=== PATIENT | female | born 1970 | race Caucasian/White ===

== ENCOUNTER 2022-11-01 09:29 | Emergency (ER) | payer BC, SELFPAY ==
--- NOTE | ~2022-11-01 | CT_ITS ---
Clinical Indication: Chest pain CT Scan of the Chest with Contrast: Technique: Contiguous sections were acquired throughout the chest after intravenous administration of 100 cc of Omnipaque 350. Dose reduction technique was used on this scan by utilizing automated expos ure control and iterative reconstruction technique. The dose-length product (DLP) was 153.03 mGy-cm. Findings: There is no evidence of any significant mediastinal, hilar or axillary lymphadenopathy. There is no f illing defect in the pulmonary arterial tree to suggest pulmonary embolus. There is no evidence of ao rtic dissection or aneurysm. There is no evidence of pleural or pericardial effusion. The lungs are clear. No pulmonary nodules or infiltrates are noted. Images through the upper abdomen reveal no abnormalities. Impression: No evidence of pulmonary embolus, aortic dissection, or aortic aneurysm. Clear lungs. Reviewed, dictated and finalized at [facility]. [facility] Impression: No evidence of pulmonary embolus, aortic dissection, or aortic aneurysm. Clear lungs.
--- NOTE | ~2022-11-01 | XR_ITS ---
Clinical Indication: Chest pain PA and lateral views of the chest: Comparison: None Findings: The lungs are clear, without evidence of focal consolidation or pleural effusion. Cardiome diastinal silhouette is within normal limits. Bones and soft tissues are unremarkable. Impression: Normal chest. Reviewed, dictated and finalized at location . [facility] Impression: Normal chest.
--- NOTE | 2022-11-01 09:31 | ECG_ITS ---
Measurements Intervals [place] Rate: 101 P: 80 ID: 150 QRS: 9 QRSD: 74 T: 66 QT: 325 QTc: 422 Interpretive Statements SINUS TACHYCARDIA NONSPECIFIC ST & T-WAVE ABNORMALITY- INF/HIGH LAT LEADS BASELINE ARTIFACT- I, II, III BORDERLINE ECG NO PREVIOUS ECG AVAILABLE FOR COMPARISON Electronically Signed On 11-01-2022 10:03:48 EMERGENCY RESPONSE OFFICER by Uriel Zamora D.O.
[2022-11-01 09:45] VITALS: BP 110/79; PULSE 111; RESP 16; TEMP 37.1; O2SAT 100
[2022-11-01 09:47] VITALS: BP 110/79; PULSE 105; RESP 16; TEMP 37.1; O2SAT 100
[2022-11-01 09:52] LABS: Basophils Percent Auto 0.4 % (0.2-1.2); Eosinophils Percent Auto 0.3 % (0-4.4); Hematocrit 41.5 % (37.0-47.0); Immature Granulocyte Absolute 0.03 K/mm3 (0.00-0.031); Immature Granulocyte Percent A 0.3 % (0-0.5); Lymphocytes Absolute Auto 1.49 K/mm3 (0.9-3.2); Lymphocytes Percent Auto 16.2 % (18.3-44.2); Mean Corpuscular HGB Conc 33.7 g/dl (32-36); Mean Corpuscular Hemoglobin 31.7 pg (26-34); Mean Corpuscular Volume 93.9 fl (80-100); Mean Platelet Volume 8.9 fl (7.4-10.4); Monocytes Absolute Auto 0.5 K/mm3 (0.1-0.6); Monocytes Percent Auto 5.8 % (2.6-8.5); Neutrophils Absolute Auto 7.1 K/mm3 (1.3-6.7); Platelet Count Result 367 k/mm3 (150-375); Red Blood Count 4.42 M/mm3 (4.2-5.4); Red Cell Distribution Width 11.6 % (11.5-14.5); White Blood Count 9.2 K/mm3 (4.5-10.0)
[2022-11-01 10:03] LABS: Prothrombin Time 12.8 Seconds (11.1-14.7)
[2022-11-01 10:04] LABS: Partial Thromboplastin Time 28.5 SECONDS (22.3-36.8)
[2022-11-01 10:07] LABS: Chloride 100 mmol/L (98-107)
[2022-11-01 10:17] LABS: Alanine Aminotransferase 17 U/L (6-35); Albumin Level 4.8 g/dL (3.5-5.1); Alkaline Phosphatase 79 U/L (38-126); Anion Gap 8 mmol/L (8-16); Aspartate Amino Transferase 23 U/L (14-36); Bilirubin,Total 0.9 mg/dL (0.2-1.3); Blood Urea Nitrogen 10 mg/dL (7-17); Calcium 9.3 mg/dL (8.4-10.2); Carbon Dioxide 28 mmol/L (22-30); Estimated CRCL calculation 84 ml/min; Estimated Glomerular Filt Rate > 60; Glucose 103 mg/dL (65-110); Lipase 52 U/L (23-300); Potassium 4.2 mmol/L (3.4-5.0); Sodium 136 mmol/L (137-145); Troponin I < 0.012 ng/mL (0.000-0.034)
[2022-11-01 11:20] VITALS: O2SAT 100
[2022-11-01 11:22] VITALS: BP 118/100; PULSE 111; RESP 14; O2SAT 100
--- NOTE | 2022-11-01 11:31 | ED.CHESTPAIN ---
HPI - Chest Pain General Chief Complaint: Chest Pain Stated Complaint: CHEST PAIN WITH INSPIRATION Time Seen by Provider: 11/01/22 11:03 History of Present Illness HPI narrative: 32-year-old healthy female here for evaluation of left shoulder/chest pain over the past 3 days. Patient states the pain is worse with deep breaths. Denies worsening pain with movement of the shoulder. She attributes this to a muscle sprain initially because she played tennis prior to onset of pain. Has not taken any medicine for her pain yet. Spoke to PCP who recommended ED eval. No fevers, chills, nausea, vomiting, leg swelling or pain. Related Data Home Medications Medication Instructions Recorded Confirmed albuterol sulfate 90 mcg/actuation 1 inh inhalation Q4-6H PRN 08/21/21 08/21/21 breath activated powder inhaler cholecalciferol (vitamin D3) 125 125 mcg PO DAILY 08/21/21 08/21/21 mcg (5,000 unit) capsule evening primrose oil 500 mg capsule 500 mg PO TID 08/21/21 08/21/21 lactobacillus combination no.4 3 3,000 mmu cells PO DAILY 08/21/21 08/21/21 billion cell capsule (Probiotic) spironolactone 100 mg tablet 100 mg PO DAILY 08/21/21 08/21/21 vitamin E 200 unit capsule 200 unit PO DAILY 08/21/21 08/21/21 levonorgestrel 21 mcg/24 hours (8 1 insert intrauterine ONCE 08/30/21 yrs) 52 mg intrauterine device (Mirena) Allergies Allergy/AdvReac Type Severity Reaction Status Date / Time No Known Allergies Allergy Verified 08/21/21 09:21 Review of Systems Review of Systems: Gen.: Denies fevers or chills Eyes: Denies eye pain or visual change ENT: Denies congestion Respiratory: Reports shortness of breath CV: Reports left-sided chest pain GI: Denies abdominal pain nausea, emesis or diarrhea denies burning, urgency, frequency or hematuria Musculoskeletal: Denies back pain or muscle pain Neuro: Denies numbness, tingling, weakness or focal weakness Skin: Denies rash Except as documented, all other systems reviewed and negative PMFSH Past Medical History Medical History Asthma Vaginal delivery x2 Surgical History Surgical History No pertinent past surgical history Family History Family History Father Skin cancer Sibling Alcoholism Anxiety and depression Grandparent Diabetes mellitus Grandparent Alcoholism Lung cancer Heart disease Social History Social History Smoking status: Never smoker Alcohol intake: current Drinks per week: 7 Alcohol use details: 1 nightly Substance use: never Agree to blood products: Yes Exam Narrative: APPEARANCE: Well appearing, no pain in distress, well-nourished. Head: Normocephalic and atraumatic. EYES: PERRLA/EOMI, conjunctivae clear NOSE: No nasal drainage EARS: External ear normal in appearance THROAT: Oropharynx is clear. Mucous membranes are moist. NECK: Supple. No adenopathy, no masses. RESPIRATORY: Airway patent, respirations nonlabored. Clear to auscultation bilaterally, no rales, rhonchi, wheezing. CARDIOVASCULAR: Tachycardic. Regular rhythm without murmurs, rubs, or gallops. ABDOMINAL: Normoactive bowel sounds. Soft, nontender, nondistended. No rebound tenderness or guarding. MUSCULOSKELETAL: Extremities are warm and well-perfused. Moves all extremities well. No edema. NEURO: Normal speech. No focal neurologic deficits. SKIN: Skin is warm and dry. No rashes. PSYCHIATRIC: Normal affect/mood.. Course Vital Signs Vital signs: Vital Signs Temperature 98.7 F 11/01/22 09:45 Pulse Rate 111 H 11/01/22 09:45 Respiratory Rate 16 11/01/22 09:45 Blood Pressure 110/79 11/01/22 09:45 Pulse Oximetry 100 11/01/22 09:45 Temperature 98.7 F 11/01/22 09:47 Pulse Rate 89 11/01/22 13:22
[2022-11-01 11:41] LABS: D Dimer 0.74 ug/mL (<0.48)
[2022-11-01 12:33] VITALS: BP 106/76; PULSE 103; RESP 20; O2SAT 98
[2022-11-01 13:10] LABS: Troponin I < 0.012 ng/mL (0.000-0.034)
[2022-11-01 13:22] VITALS: BP 100/72; PULSE 89; RESP 14; O2SAT 99
== END 2022-11-01 13:29 | disposition home or self-care (01) ==
PROVIDERS: Emergency Medicine; Emergency Provider Physician Assistant; PCP Emergency Medicine
DX: R09.1 Pleurisy (principal); J45.909 Unspecified asthma, uncomplicated; Z79.51 Long term (current) use of inhaled steroids
CPT/HCPCS: 36415; 71046; 71275; 80053; 83690; 84484; 85025; 85380; 85610; 85730; 93005; 99284; Q9967

== ENCOUNTER → 2023-03-31 07:43 | Outpatient (CLI) | payer BC, SELFPAY ==
--- NOTE | ~2023-03-31 | MR_ITS ---
EXAMINATION: MR brain/brain stem wo/w con DATE: 03/31/2023 08:41 INDICATION: Ringing in the ears and headaches TECHNIQUE: Magnetic resonance imaging (MRI) of the brain and brainstem was performed without and with 10 mL Multihance intravenous contrast. Sequences included sagittal and axial T1-weighted FSE, axial diffusion-weighted FS EPI, axial T2*-weighted GRE, axial T2-weighted FLAIR Propeller, axial T2-weight ed Propeller, small mnkoq-se-exkf coronal FIESTA, small bpuat-fy-bzoz coronal T1-weighted FSE, and sm all fmkjo-op-zswd axial T1-weighted SPGR. Postcontrast sequences included axial T1-weighted FSE, smal l xhqin-an-inwa coronal T1-weighted FSE, and small mvqfh-mm-dhes axial T1-weighted SPGR. Apparent dif fusion coefficient (ADC) maps were created. COMPARISON: None. FINDINGS: There are no areas of restricted diffusion to suggest acute infarction. No intracranial hemorrhage or abnormal intracranial mass lesion. Developmental venous anomaly in the periventricular anterior righ t frontal lobe. There are scattered areas of nonspecific increased T2-weighted signal intensity in th e cerebral white matter, predominantly involving the deep and periventricular white matter. There are no intraparenchymal signal abnormalities seen on the other pulse sequences. Normal seventh/eighth cr anial nerve complexes. No cerebellopontine angles masses. No evidence of mastoid or middle ear flui d. The ventricles are symmetric and normal in size. There are no abnormal extra-axial fluid collectio ns. Flow voids are seen in the cerebral arteries on the T2-weighted sequences consistent with their e xpected patency. Mucous retention cyst in the right maxillary sinus. Visualized orbits and soft tissu es are unremarkable. There are no areas of abnormal enhancement on the post contrast images. IMPRESSION: 1. Right frontal lobe developmental venous anomaly. Otherwise normal brain with no acute intracranial process. Reviewed, dictated and finalized at location [facility].
== END ==
PROVIDERS: PCP Internal Medicine; Visit Provider Otolaryngology
DX: H93.13 Tinnitus, bilateral (principal)
CPT/HCPCS: 70553; A9577

== ENCOUNTER → 2023-10-16 10:46 | Outpatient (CLI) | payer BC, SELFPAY ==
--- NOTE | ~2023-10-16 | CT_ITS ---
EXAMINATION: CT abdomen pelvis w con DATE: 10/16/2023 11:15 INDICATION: Unspecified abdominal pain TECHNIQUE: Computed tomography (CT) of the abdomen and pelvis was performed with 100 CC Omnipaque 350 intravenous contrast. Automated exposure control and iterative reconstruction technique were employe d. Exam dose: 264.96 mGy-cm total exam DLP. COMPARISON: None. FINDINGS: The lung bases are clear. Normal heart size. No pericardial or pleural effusion. The liver, gallbladder, bile ducts, spleen, pancreas, pancreatic duct, and adrenal glands are unremar kable. There are several right renal cysts, measuring up to 7.5 mm. Several left renal cysts measuring up to 7.5 mm are noted as well. No urinary tract calculus or hydroureteronephrosis is detected. 1.8 x 2.4 cm right ovarian cyst. As an IUD within the uterus. There is uterine enlargement, measuring up to 11 cm vertical and 6 cm an teroposterior maximal dimensions. Normal caliber of the abdominal aorta. No intraperitoneal or retroperitoneal or pelvic mass lesion or adenopathy or ascites. Normal caliber of the abdominal aorta. No intraperitoneal or retroperitoneal or pelvic mass lesion or adenopathy or ascites. There is moderate diffuse thickening of the urinary bladder wall. Recommend correlation with urinalys is to exclude cystitis. No evidence of appendicitis. There is a prominent amount of fecal material in the colon. No bowel obs truction, bowel wall thickening, pneumatosis or intraperitoneal free air is detected. Included skeletal structures are unremarkable. IMPRESSION: 1.8 x 2.4 cm right ovarian cyst Several bilateral renal cysts measuring up to 7.5 mm Moderate diffuse thickening of the urinary bladder wall; recommend clinical correlation to exclude cy stitis Reviewed, dictated and finalized at [facility]. Reviewed, dictated and finalized at location L. REL MANUFACTURE INSTRUCTOR IMPRESSION: 1.8 x 2.4 cm right ovarian cyst Several bilateral renal cysts measuring up to 7.5 mm Moderate diffuse thickening of the urinary bladder wall; recommend clinical cor relation to exclude cystitis
== END ==
PROVIDERS: PCP Internal Medicine; Visit Provider Internal Medicine
DX: N83.201 Unspecified ovarian cyst, right side (principal); N28.1 Cyst of kidney, acquired
CPT/HCPCS: 74177; Q9967

== ENCOUNTER 2023-11-13 15:08 | Outpatient (CLI) | payer BC, SELFPAY ==
--- NOTE | ~2023-11-13 | US_ITS ---
EXAMINATION: US pelvic complete w TV DATE: 11/13/2023 15:38 INDICATION: Right ovarian cyst seen on prior CT Comparison:No prior studies for comparison. TECHNIQUE: Multiple transabdominal and endovaginal sonographic images of the pelvis performed. FINDINGS: The uterus measures 11.8 x 6.8 x 6.4 cm. There are multiple uterine masses, consistent with fibroids, largest measuring 3 cm. The endometrial complex measures 8 mm. The right ovary measures 3.2 x 2.4 x 1.9 cm and the left ovary measures 4.1 x 3.1 x 3.1 cm. There ar e small follicles in each ovary. There is a septated left ovarian cyst measuring 4 x 3.1 x 2.2 cm Nor mal doppler signal in both ovaries. There is no free fluid in the pelvis. There are no abnormal masses seen on either side. IMPRESSION: 1. Left ovarian cyst containing internal septations measuring 4 cm. 2: Enlarged fibroid uterus, largest discrete fibroid measuring 3 cm. Reviewed, dictated and finalized at location A.
== END 2023-11-13 15:09 ==
PROVIDERS: PCP Internal Medicine; Visit Provider Nurse Practitioner
DX: N85.2 Hypertrophy of uterus (principal); N83.202 Unspecified ovarian cyst, left side; D25.9 Leiomyoma of uterus, unspecified
CPT/HCPCS: 76830; 76856

== ENCOUNTER 2023-12-30 15:06 | Outpatient (CLI) | payer BC, SELFPAY ==
--- NOTE | ~2023-12-30 | US_ITS ---
EXAMINATION: US pelvic complete DATE: 12/30/2023 15:31 INDICATION: Follow-up left ovarian cyst Comparison:Ultrasound dated 11/13/2023 TECHNIQUE: Multiple transabdominal and endovaginal sonographic images of the pelvis performed. FINDINGS: The uterus measures 10.4 x 6.4 x 6.1 cm. There are uterine fibroids with coarse calcificati ons in the uterus. Largest fibroid measures 2.9 cm. The endometrial complex measures 7 mm. The right ovary is not visualized. Left ovary measures 4.1 x 3.7 x 2.1 cm and contains a 3.6 cm cyst. There is normal Doppler signal in the left ovary. There is no free fluid in the pelvis. There are no abnormal masses seen on either side. IMPRESSION: 1. Left ovarian cyst measuring 3.6 cm. 2: Enlarged fibroid uterus. Reviewed, dictated and finalized at location B.
== END 2023-12-30 15:07 ==
PROVIDERS: PCP Internal Medicine; Visit Provider Obstetrics & Gynecology Gynecology
DX: N83.202 Unspecified ovarian cyst, left side (principal); D25.9 Leiomyoma of uterus, unspecified
CPT/HCPCS: 76856

== ENCOUNTER 2024-01-09 02:04 | Day surgery (SDC) | payer BC, SELFPAY ==
[2023-12-23 13:48] VITALS: BMI 20.5
[2024-01-09] MEDS: LACTATED RINGERS 1,000 ML 150 ML IV CONT (06:21)
[2024-01-09 06:22] VITALS: BP 117/83; PULSE 107; RESP 16; TEMP 36.6; O2SAT 100
--- NOTE | 2024-01-09 07:12 | PM.HPGS ---
History of Present Illness History of Present Illness Consent: Risks, benefits, and alternatives have been discussed and questions answered. Patient agrees to proceed with procedure. Chief complaint: neoplasm screening Narrative: Yoana Penn is a 53 year old female here for first screening colonoscopy Review of Systems Review of Systems: All systems reviewed & are unremarkable except as noted in HPI and below PMFSH Past Medical History Medical History (Updated 01/09/24 @ 07:13 by Lewis Erickson MD) Asthma Colon cancer screening Vaginal delivery x2 Surgical History Surgical History No pertinent past surgical history Family History Family History Father Skin cancer Sibling Alcoholism Anxiety and depression Grandparent Diabetes mellitus Grandparent Alcoholism Lung cancer Heart disease Social History Social History Smoking status: Never smoker Alcohol intake: current Drinks per week: 4 Alcohol use details: WINE Substance use: never Substance use type: does not use Living arrangements: with family Spiritual care concerns: No Agree to blood products: Yes Meds Home Medications and Allergies Home Medications Medication Instructions Recorded Confirmed Type albuterol sulfate 90 mcg/actuation 1 inh inhalation Q4-6H PRN 08/21/21 12/23/23 History breath activated powder inhaler Shortness Of Breath cholecalciferol (vitamin D3) 125 125 mcg PO DAILY 08/21/21 12/23/23 History mcg (5,000 unit) capsule lactobacillus combination no.4 3 3,000 mmu cells PO DAILY 08/21/21 12/23/23 History billion cell capsule (Probiotic) spironolactone 100 mg tablet 100 mg PO DAILY 08/21/21 12/23/23 History vitamin E 200 unit capsule 200 unit PO DAILY 08/21/21 12/23/23 History levonorgestrel 21 mcg/24 hr (up to 1 insert intrauterine ONCE 08/30/21 12/23/23 History 8 years) 52 mg intrauterine device (Mirena) ascorbic acid (vitamin C) 500 mg 500 mg PO DAILY 12/23/23 12/23/23 History tablet Allergies Allergy/AdvReac Type Severity Reaction Status Date / Time No Known Allergies Allergy Verified 01/09/24 06:08 Vital Signs Vital Signs - 24 hr 01/09/24 06:22 Temperature 98 F Pulse Rate 107 H Respiratory Rate 16 Blood Pressure 117/83 Pulse Oximetry 100 Oxygen Delivery Room Air Exam Const: General: comfortable and no acute distress HENMT: Face/Nose/Sinus: Normal nares present Eyes: General: appearance normal, both eyes and all related structures Neck: Neck: no JVD Resp: Auscultation: clear to auscultation bilaterally Cardio: Rate: regular rate Rhythm: regular rhythm GI: Inspection: non-distended GI Palp: Yes Soft to palpation Skin: General skin exam: normal color Neuro: General: gait normal Speech: normal speech Extrem: General: normal to inspection Psych: Mental Status: mental status grossly normal Assessment and Plan Assessment and plan (1) Colon cancer screening: Code(s): Z12.11 - Encounter for screening for malignant neoplasm of colon Status: Acute Assessment and Plan: colonoscopy
--- NOTE | 2024-01-09 07:24 | WPDANESEPPF ---
Anes - Initial Pre Proc Eval Procedure: Operation Date: 01/09/24 07:30 Proposed Procedures p Screening Colonoscopy - Lewis Erickson MD Date/Time: 01/09/24 07:24 Surgeon: Lewis Erickson MD Pre Op Diagnosis: neoplasm screening Patient Data Age: 53 Gender: F Height: 1.65 m Weight: 54.2 kg Last Vital Signs Temp 98 F 01/09/24 06:22 Pulse 107 H 01/09/24 06:22 Resp 16 01/09/24 06:22 BP 117/83 01/09/24 06:22 Pulse Ox 100 01/09/24 06:22 O2 Del Method Room Air 01/09/24 06:22 Allergies Allergy/AdvReac Type Severity Reaction Status Date / Time No Known Allergies Allergy Verified 01/09/24 06:08 Home Medications Medication Instructions Recorded Confirmed Type albuterol sulfate 90 mcg/actuation 1 inh inhalation Q4-6H PRN 08/21/21 12/23/23 History breath activated powder inhaler Shortness Of Breath cholecalciferol (vitamin D3) 125 125 mcg PO DAILY 08/21/21 12/23/23 History mcg (5,000 unit) capsule lactobacillus combination no.4 3 3,000 mmu cells PO DAILY 08/21/21 12/23/23 History billion cell capsule (Probiotic) spironolactone 100 mg tablet 100 mg PO DAILY 08/21/21 12/23/23 History vitamin E 200 unit capsule 200 unit PO DAILY 08/21/21 12/23/23 History levonorgestrel 21 mcg/24 hr (up to 1 insert intrauterine ONCE 08/30/21 12/23/23 History 8 years) 52 mg intrauterine device (Mirena) ascorbic acid (vitamin C) 500 mg 500 mg PO DAILY 12/23/23 12/23/23 History tablet Patient hx anesthesia problems: none Family hx anesthesia problems: none Results Review: All pre-operative results and documents have been reviewed as part of the pre-operative evaluation. [facility] Past Medical History Medical History (Updated 01/09/24 @ 07:13 by Lewis Erickson MD) Asthma Colon cancer screening Vaginal delivery x2 Surgical History Surgical History No pertinent past surgical history Family History Family History Father Skin cancer Sibling Alcoholism Anxiety and depression Grandparent Diabetes mellitus Grandparent Alcoholism Lung cancer Heart disease Social History Social History Smoking status: Never smoker Alcohol intake: current Drinks per week: 4 Alcohol use details: WINE Substance use: never Substance use type: does not use Living arrangements: with family Spiritual care concerns: No Agree to blood products: Yes Anes - Eval Final PreProcedure Day of Procedure 01/09/24 07:24 Patient weight: normal Heart: regular rate and rhythm Lungs: clear to auscultation Airway: Mallampati scale class II Neurological: alert and oriented Last oral intake: >/= 8 hours ASA classification: II Emergent: no Anesthetic plan: proceed Anesthesia type and monitoring: general GIVS and standard monitoring Results Review: All pre-operative results and documents have been reviewed as part of the pre-operative evaluation. Informed Consent: The patient's anesthetic plan and its attendant risks and benefits were discussed with the patient/family/POA. Questions were solicited and answers provided to the satisfaction of the patient/family/POA.
[2024-01-09 07:45] VITALS: BP 96/59; PULSE 93; RESP 16; O2SAT 100
[2024-01-09 07:55] VITALS: BP 101/66; PULSE 79; RESP 16; O2SAT 100
[2024-01-09 08:04] VITALS: BP 108/72; PULSE 77; RESP 16; O2SAT 100
== END 2024-01-09 08:20 | disposition home or self-care (01) ==
PROVIDERS: PCP Internal Medicine; Visit Provider Internal Medicine Gastroenterology
PROC: 0DJD8ZZ Inspection of Lower Intestinal Tract, Via Natural or Artificial Opening Endoscopic (ICD-10-PCS; CPT 45378; principal; 2024-01-09 07:30)
DX: Z12.11 Encounter for screening for malignant neoplasm of colon (principal); K64.8 Other hemorrhoids; J45.909 Unspecified asthma, uncomplicated; Z79.51 Long term (current) use of inhaled steroids
CPT/HCPCS: 45378; J2704; J7120

== ENCOUNTER 2024-04-08 15:11 | Outpatient (CLI) | payer BC, SELFPAY ==
--- NOTE | ~2024-04-08 | US_ITS ---
EXAMINATION: US pelvic complete INDICATION: Follow-up left ovarian cyst Comparison:No prior studies for comparison. TECHNIQUE: Multiple transabdominal sonographic images of the pelvis performed. FINDINGS: The uterus measures 10.8 x 7.2 x 5.5 cm. There are uterine fibroids, largest measuring 3.1 cm. There is fluid in the cervix. The endometrial complex measures 4 mm. The right ovary is not visualized. The left ovary measures 2.3 x 1.9 x 1.4 cm and contains a complica darrion 1.9 cm cyst. There is no free fluid in the pelvis. There are no abnormal masses seen on either side. IMPRESSION: 1. Complicated 1.9 cm left ovarian cysts. 2: Enlarged fibroid uterus. Largest discrete fibroid measures 3.1 cm. Reviewed, dictated and finalized at location [facility].
== END 2024-04-08 15:12 ==
PROVIDERS: PCP Internal Medicine; Visit Provider Obstetrics & Gynecology Gynecology
DX: N83.202 Unspecified ovarian cyst, left side (principal); D25.9 Leiomyoma of uterus, unspecified
CPT/HCPCS: 76856

== ENCOUNTER 2024-10-14 12:46 | Outpatient (CLI) | payer BC, SELFPAY ==
--- NOTE | ~2024-10-14 | US_ITS ---
EXAMINATION: US renal BI DATE: 10/14/2024 13:15 INDICATION: Multiple renal cysts TECHNIQUE: Multiple ultrasound grayscale images of the kidneys were obtained. COMPARISON: CT dated 10/16/2023 FINDINGS: The right kidney measures 10.3 x 4.8 x 4.0 cm. The left kidney measures 11.1 x 4.8 x 5.7 cm. The kidn eys demonstrate normal echogenicity. There are couple anechoic cysts in the left kidney measuring 1 c m and 5 mm in maximal diameters. There is no hydronephrosis in either kidney. No stones identified. The bladder is normal with bilateral ureteral jets visualized on color Doppler. IMPRESSION: 1. Couple small left renal cyst. Otherwise normal kidneys without hydronephrosis. Reviewed, dictated and finalized at location A. HOOKER IMPRESSION: 1. Couple small left renal cyst. Otherwise normal kidneys without hydronephros is.
== END 2024-10-14 12:47 | disposition home or self-care (01) ==
PROVIDERS: PCP Obstetrics & Gynecology Gynecology; Visit Provider Internal Medicine
DX: N28.1 Cyst of kidney, acquired (principal)
CPT/HCPCS: 76775

== ENCOUNTER 2025-06-03 15:34 | Emergency (ER) | payer BC, SELFPAY ==
--- NOTE | ~2025-06-03 | XR_ITS ---
EXAMINATION: XR chest 2V, 06/03/2025 17:40 CDT HISTORY: cp COMPARISON: No comparisons available. Technique: 2 views obtained. Findings: The lungs are clear, no effusion. No pneumothorax. Heart is normal size. Mediastinal and hilar contours are within normal limits. Bony thorax no acute abnormality. Impression: No acute cardiopulmonary abnormality. Reviewed, dictated and finalized at location P. Impression: No acute cardiopulmonary abnormality.
--- OUTSIDE RECORDS SUMMARY | 2025-06-03 15:15 | XMS_ITS | Encounter Summary ---
Author Organization [facility] Healthcare Address [address] [place] [address] Care Team Providers Care Oim Consultant Name Role Phone Mynor Beltran MD Primary Care Provider [phone] Reason for Visit * Reason Comments Back Pain Sharp pain under R s yeimy shoulder blade started last PM. This AM pain started to radiate to R side of ribs when taking a deep breath. Reports she fell x 1 week ago but landed on L side but denies any injury at that time . Reports the pain has come on out of nowhere and has not gone away Encounter Details Date Type Department Care Team (Late st Contact Info) Description 06/03/2025 3:15 PM CDT Office Visit [facility] at [address] [address] Letty Godoy NP [address] [place] [address] [address] [place] [address] Acute right-sided thoracic back pain (Primary Dx); Dyspnea, unspecified type Social History Tobacco Use Types Packs/Day Years Used Date Smoking Tobacco: Never Smokeless Tobacco: Never Alcohol Use Standard Drinks/Week Comments Yes 0 (1 standard drink = 0.6 oz pur e alcohol) Comments No Sex and Gender Information Value Date Recorded Sex Assigned at Not on file 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 Gender Identity Not on file Sexual Orientation Not on file 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 Not on file Not on file documented as of this encounter Last Filed Vital Signs Vital Sign Reading Time Taken Comments Blood Pressure 118/78 06/03/2025 3:03 PM CDT Pulse 81 06/03/2025 3:03 PM CDT Temperature 36.6 C (97.9 F) 06/03/2025 3:03 PM CDT Respiratory Rate 16 06/03/2025 3:03 PM CDT Oxygen Saturation 98% 06/03/2025 3:03 PM CDT Inhaled Oxygen Concentration - - Weight 56.7 kg (125 lb) 06/03/2025 3:03 PM CDT Height - - Body Mass Index 20.8 04/27/2018 3:20 PM CDT documented in this encounter Plan of Treatment Not on file documented as of this encounter Visit Diagnoses Diagnosis Acute right-sided thoracic back pain- Primary Dyspnea, unspecified type documented in this encounter Historical Medications * This list may reflect changes made after this encounter. finasteride (PROPECIA) 1 mg tablet Take 1 tablet (1 mg total) by mouth daily 05/23/2025 added in this encounter Care Teams Oim Consultant Relationship Specialty Start Date End Date Mynor Beltran MD PCP - General Internal Medicine 02/17/18 documented as of this encounter
--- OUTSIDE RECORDS SUMMARY | 2025-06-03 15:15 | XMS_ITS | Encounter Summary ---
Author Organization [facility] Healthcare Address [address] [place] [address] Care Team Providers Care Hedge Trimmer Name Role Phone Mynor Beltran MD Primary Care Provider [phone] Reason for Visit * Reason Comments Back [...] Description 06/03/2025 3:15 PM CDT Office Visit [facility] at [address] [address] Letty Godoy NP [address] [place] [address] [address] [place] [address] Acute right-sided thoracic back pain (Primary Dx); Dyspnea, unspecified type Social History Tobacco Use Types Packs/Day Years Used Date Smoking Tobacco: Never Smokeless Tobacco: Never Alcohol Use Standard Drinks/Week Comments Yes 0 (1 standard drink = 0.6 oz pur e alcohol) Comments No Sex and Gender Information Value Date Recorded Sex Assigned at Not on file 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
[2025-06-03 15:36] VITALS: BP 129/95; PULSE 107; RESP 18; TEMP 36.7; O2SAT 100
--- OUTSIDE RECORDS SUMMARY | 2025-06-03 15:37 | XMS_ITS | Clinical Summary ---
Author Organization [facility] [address] Address [address] [place] [address] Phone Care Team Providers Care Film Processing Supervisor Name Role Phone Mynor Beltran MD Primary Care Provider Allergies No known active allergies Medications albuterol HFA (PROVENTIL HFA,VENTOLIN HFA) 90 mcg/actuation inhaler inhale 2 puff by inhalation route every 4 - 6 hours as needed 0 Inhaler 0 4 Active levonorgestrel (MIRENA) IUD 1 each by intrauterine route once. Active spironolactone (ALDACTONE) 100 mg tablet 8 Active finasteride (PROPECIA) 1 mg tablet Take 1 tablet (1 mg total) by mouth daily 5 Active Active Problems No known active problems Encounters Date Type Department Care Team Description 06/03/2025 3:15 PM CDT Office Visit [facility] Care at [address] [address] Letty Godoy NP Acute right-sided thoracic back pain (Primary Dx); Dyspnea, unspecified type from Last 3 Months Surgical History Surgery Date Site/Laterality Comments NO PAST SURGERIES Medical History Medical History Date Comments Asthma Seasonal allergies Family History Medical History Relation Name Comments Melanoma Father COD Lung cancer Maternal Grandfather Skin cancer Maternal Grandfather Cancer Mother bile duct; COD at age 83 Kidney cancer Mother Heart attack Paternal Grandfather Diabetes Paternal Grandmother Relation Name Status Comments Father Maternal Grandfather Mother (Age 83) Paternal Grandfather Paternal Grandmother Social History Tobacco Use Types Packs/Day Years Used Date Smoking Tobacco: Never Smokeless Tobacco: Never Tobacco Cessation:Counseling Given: Yes Alcohol Use Standard Drinks/Week Comments Yes 0 (1 standard drink = 0.6 oz pur e alcohol) Comments No Sex and Gender Information Value Date Recorded Sex Assigned at Not on file 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 Gender Identity Not on file Sexual Orientation Not on file 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 Not on file Not on file Obstetrics History Para Term AB IAB SAB Ectopic Multiple Livin g Live Births 2 2 2 0 0 0 0 0 0 2 2 Date Outcome GA Total Labor Labor/2nd/3rd Weight Sex Type Anes PTL Marilyn A1 A5 Name Clin Term Term Last Filed Vital Signs Vital Sign Reading Time Taken Comments Blood Pressure 118/78 06/03/2025 3:03 PM CDT Pulse 81 06/03/2025 3:03 PM CDT Temperature 36.6 C (97.9 F) 06/03/2025 3:03 PM CDT Respiratory Rate 16 06/03/2025 3:03 PM CDT Oxygen Saturation 98% 06/03/2025 3:03 PM CDT Inhaled Oxygen Concentration - - Weight 56.7 kg (125 lb) 06/03/2025 3:03 PM CDT Height 165.1 cm (5' 5) 04/27/2018 3:20 PM CDT Body Mass Index 20.8 04/27/2018 3:20 PM CDT Plan of Treatment Health Maintenance Due Date Last Done Comments Cervical Cancer Screening 1970 Colon Cancer Screening-Colonoscopy 1970 Depression Screening 1970 Hepatitis C Screening 1970 DTaP/Tdap/Td Vaccine (1 - Tdap) 1981 Hepatitis B Screening 1988 Pneumococcal vaccine <65 (1 of 2 - PCV) 1989 Regular Well Visit/Exam 18-64 02/17/2019 02/17/2018 Covid-19 Vaccine (5 - 2024-2 6 season) 2025 07/22/2022, 08/12/2021, 10/16/2020, Additional history exists Influenza Vaccine (#1) 2025 2, 07/12/2019, 07/13/2018, Additional history exists Breast Cancer Screening-Mammogram 11/24/2025 11/24/2024, 11/24/2024, 11/24/2023, Additional history exists Zoster Vaccine Completed 04/18/2023, 12/27/2022 Insurance [facility] Care Teams Film Processing Supervisor Relationship Specialty Start Date End Date Mynor Beltran MD PCP - General Internal Medicine 02/17/18
--- OUTSIDE RECORDS SUMMARY | 2025-06-03 15:37 | XMS_ITS | Data Portability ---
Author Organization [facility] [email or web address], Main Office Address [address] [place] [address] Assessment No assessment recorded. Plan of Treatment Reminders Order Date Submit Date Provider Last Modified By Organization Details Last Modified Time Details Appointments None recorded. Lab lipid panel, serum [address], [address] [place], [address], 5 10:38:17 vitamin D, 25-hydroxy, total, serum [address], [address] [place], [address], 5 10:38:17 CMP, serum or plasma [address], [address] [place], [address], 5 10:38:17 CBC w/ auto diff 2024 025 MARVIN [facility], [address] [place], [address], 5 10:19:19 urinalysis, complete [email or web address], [address] [place], [address], 5 11:01:41 urinalysis, complete [email or web address] [place] [address], [address] [place], [address], 4 09:16:32 CBC w/ auto diff [email or web address], [address] [place], [address], 4 09:13:24 lipase, serum or plasma 2023 024 [email or web address] [facility], [address] [place], [address], 4 09:13:24 CMP, serum or plasma [address], [address] [place], [address], 4 09:13:24 Referral otolaryngol ogist referral 2022 023 [email or web address] 3 Charlie Do, [address] [facility] [address], [place], [address], 3 12:54:46 Procedures colonoscopy screening (PROC) 2023 024 [email or web address] Chip Saunders MD, [address], [address], [place], [address], 4 09:13:46 Surgeries None recorded. Imaging US, kidney - Please call patient to schedule. 2024 025 [facility] ([facility]), [address] [place], [address], 5 19:07:34 CT, abdomen + pelvis, w/wo contrast - Auth approved, auth# [id number], Valid 10/14/23 - 12/12/232023 024 [facility], [address] [place] [address], [address], [place], [address], 4 12:21:03 Medication Orders ibuprofen 800 mg tablet 2023 024 [id number], [address], [place], [place], [id number], 17:49:39 Patient TargetsNo targets recorded. Patient InstructionsNo instructions recorded. 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 [email or web address] Not Available 2022 12:57:50 10/16/19 24 10/16/2023 CT, abdom en + pelvi s, w/ contr ast No observ ation record ed. [email or web address] [facility] [address] [place] [address] Dr Torres, [place], [address], 10/28/2023 09:49:19 11/14/19 24 11/13/2023 US, duple x, pelvi s, compl ete No observ ation record ed. BARCODE Not Available 2023 15:07:27 12/30/19 24 12/30/2023 US, duple x, pelvi s, compl ete No observ ation record ed. BARCODE Not Available 2023 17:37:30 04/09/20 24 04/08/2024 US, pelvi s, compl ete No observ ation record ed. BARCODE Not Available 2023 18:07:54 10/14/19 25 10/14/2024 US, kidne y No observ ation record ed. [email or web address] [facility] [address] [place] [address] [address], [place], [address], 10/19/2024 15:47:20 Result Notes None recorded. Problems Name Problem SNOMED Code Status Onset Date Resolution Date Notes Provider Name and Address Organization Details Recorded Time Celluliti s 564659857 Completed Not Available [facility] 3 14:46:26 Asthma 227163605 Active Jenniffer garcía RMA null, [place] [facility] 4 11:55:59 Disorder of skin 84595210 Completed Not Available [facility] 3 14:46:26 Bilateral tinnitus 44336104260 02 Completed 202210/13/2023 Jenniffer garcía, RMA null, [place] [facility] 4 11:56:02 Pleuritic pain 2895095 Completed 202210/13/2023 Jenniffer garcía, RMA null, [place] [facility] 4 11:56:22 Loss of hair 849276207 Active 2022 Jenniffer garcía RMA null, [place] [facility] 4 11:56:06 Low back pain 363459339 Completed 202210/13/2023 Jenniffer garcía, RMA null, [place] [facility] 4 11:56:18 Urinary symptoms 831966135 Completed 202310/13/2023 Jenniffer garcía, RMA null, [place] [facility] 4 12:00:29 Acute urinary tract infection 361966420 Completed 202310/13/2023 Jenniffer garcía RMA null, [place] [facility] 4 11:55:55 Abdominal pain 96806969 Active 2023 Mynor Beltran MD [address] [place] [address], [address] , [place] [facility] 4 12:16:54 Dysfuncti on of urinary bladder 91076223 Active 2023 Berenice Buckley LPN null, [place] [facility] 4 09:50:53 Platelet count outside reference range 816182981 Active [address] MA null, [facility] 4 16:22:37 Multiple renal cysts 580037315 Active 2024 Mynor Beltran MD [address], [address], [place], [address] , [facility] [employer] [facility] 5 13:15:09 Uterine leiomyoma 54026417 Active 2024 Mynor Beltran MD [address], [address], [place], [address] , [facility] 5 13:21:06 Vitamin D deficienc y 27670394 Active [address] MA null, [facility] 5 14:33:21 Problem Notes None recorded. Medical Equipment None Reported. Allergies No known drug allergies Medications Name Sig Start Date Stop Date Status Note LastModified by Organization Details LastModified Time amoxicilli n 500 mg capsule TAKE 1 CAPSULE BY MOUTH THREE TIMES DAILY 03/24 completed Not Available Not Available Not Available Mirena 21 mcg/24 hr (up to 8 years) 52 mg intrauteri ne device active Not Available Not Available No t Available doxycyclin e hyclate 100 mg capsule 08/18 completed Not Available Not Available Not Available ibuprofen 800 mg tablet TAKE 1 TABLET BY MOUTH THREE TIMES DAILY active Not Available Not Available No t Available fluconazol e 150 mg tablet TK 1 T PO NOW AND REPEAT IN 4 DAYS 03/17 completed Not Available Not Available Not Available spironolac tone 100 mg tablet TAKE 1 TABLET BY MOUTH DAILY active Not Available Not Available No t Available metronidaz ole 500 mg tablet TK 1 T PO Q 12 H TAT 03/17 completed Not Available Not Available Not Available tramadol 50 mg tablet Take 1 tablet every 6 hours by oral route. active called in #15 () Not Available Not Available Not Available ciprofloxa tari 0.3 % eye drops INSTILL 1 DROP INTO AFFECTED EYE(S) BY OPHTHALM IC ROUTE EVERY 2 HOURSWHI LE AWAKE FOR 2 DAYS THEN 1 DROP EVERY 4 HRS WHILE AWAKE FOR 5 DAYS active Not Available Not Available No t Available cephalexin 500 mg capsule TK 1 C PO QID active Not Available Not Available No t Available ergocalcif ting (vitamin D2) 1,250 mcg (50,000 unit) capsule TAKE 1 CAPSULE BY MOUTH EVERY WEEK active Not Available Not Available No t Available albuterol sulfate HFA 90 mcg/actuat ion aerosol inhaler INHALE 2 PUFFS EVERY 4 HOURS NEEDED FOR 30 DAYS active Not Available Not Available No t Available cyclobenza corutney 5 mg tablet Take 1 tablet 3 times a day by oral route as needed. 09/08 completed Not Available Not Available Not Available nitrofuran toin monohydrat e/macrocry stals 100 mg capsule TAKE 1 CAPSULE BY MOUTH TWICE DAILY FOR 5 DAYS active Not Available Not Available No t Available Vitamin C 500mg daily active Not Available Not Available No t Available calcium with D 1200mg/2 5mcg daily active Not Available Not Available No t Available vitamin E 180mg daily active Not Available Not Available No t Available Heliocare once a day active Not Available Not Available No t Available Probiotic daily active Not Available Not Natalee ilable Not Available Flucelvax Quad (PF) 60 mcg (15 mcg x 4)/0.5 mL IM syringe ADM 0.5ML IM UTD 11/11 completed Not Available Not Available Not Available Vitals Date Recorded Body height Body mass index (BMI) Body weight Provider Name and Address Organization Details Last Updated DateTime 09/08/2023 165.1 cm 21.1 kg/m2 80760.23 g Abel Quarles CMA [employer] [facility] [email or web address] 09/08/2023 16:43:02 Date Recorded Body height Body mass index (BMI) Body weight Body temperature Oxygen saturation Oxygen saturation in Arterial blood by Pulse oximetry Heart rate Systolic And Diastolic Provider Name and Address Organization Details Last Updated DateTime 165.1 cm 20.5 kg/m2 49327.8 6 g 98.2 [degF] 98 % 98 % 89 /min 120/76 mm[Hg] Basia lal [employer] [facility] [email or web address] 12:31:43 Date Recorded Body height Body mass index (BMI) Body weight Body temperature Heart rate Oxygen saturation Oxygen saturation in Arterial blood by Pulse oximetry Systolic And Diastolic Provider Name and Address Organization Details Last Updated DateTime 4 165.1 cm 20.3 kg/m2 48261.2 7 g 98.1 [degF] 94 /min 99 % 99 % 114/60 mm[Hg] Abel Quarles [email or web address] [facility] [employer] [facility] 4 11:45:44 Date Recorded Body weight Body mass index (BMI) Body height Body temperature Heart rate Oxygen saturation Oxygen saturation in Arterial blood by Pulse oximetry Systolic And Diastolic Provider Name and Address Organization Details Last Updated DateTime 3 08531.7 9 g 22.1 kg/m2 165.1 cm 98.1 [degF] 90 /min 98 % 98 % 114/70 mm[Hg] CHIOMA Guadarrama [employer] [facility] [email or web address] 3 15:44:51 Social History None recorded. 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 Family History Nothing Reported. Medical History No medical history recorded. Gynecological HistoryNo gynecological history recorded. Obstetrics History GPAL:G 0 P 0 0 0 0 Immunizations Vaccine Type Date Status Note Provider Nam e and Address Organization Details Recorded Time Influenza, split virus, quadrivalent, PF 8 completed Not Available [facility] 10/30/2022 14:50:04 Influenza, split virus, quadrivalent, PF 7 completed Not Available [facility] 10/30/2022 14:50:04 Influenza, high-dose, trivalent, PF 5 completed Not Available [facility] 10/30/2022 14:50:04 meningococcal MCV4P 5 completed Not Available [facility] 10/30/2022 14:50:04 Influenza, split virus, trivalent, PF 4 completed Not Available [facility] 10/30/2022 14:50:05 MMR 5 completed Not Available [facility] 10/30/2022 14:50:05 Past Encounters Encounter ID Performer Location Encounter Start Date Encounter Closed Date Diagnosis/Indication Diagnosis SNOMED-CT Code Diagnosis ICD10 Code Diagnosis IMO Codes Diagnosis Note [id number] Mynor Beltran MD [facility] Internal [facility] [address] [place] [address] 11/11/2022 15:27:04 11/11/2022 16:28:41 Adult health examination 637713916 Z00.00 Colonoscop y- NEVERPap- 09/2022 - GYNMammogr am- 04/12/22- NL per pt (not in chart)Flu- 2COVID- Has had he first 2 and 1 booster Bilateral tinnitus 14730 67730 102 H93.13 Pleuritic pain 6543851 R 07.81 improved Loss of hair 335267464 L 65.9 meds help [id number] Mynor Beltran MD [facility] Internal [address] [address] 09/08/2023 16:04:54 09/08/2023 17:21:03 Low back pain 054167045 M54.50 stretching , heat [id number] Mynor Beltran MD [facility] Internal [address] [address] 10/13/2023 11:35:00 10/13/2023 12:25:59 Abdominal pain 43570349 R10.9 need more w/u Screening for malignant neoplasm of colon 073178158 Z12.11 [id number] Mynro Beltran MD [facility] Internal [address] [address] 10/08/2024 12:17:24 10/08/2024 13:22:50 Multiple renal cysts 401481367 N28.1 Hyperlipid emia screening 030217811 Z13.220 Long-term drug therapy 073681355 Z79.891 Uterine leiomyoma 579364 05 D25.9 no symptoms, seen gyne Health Concerns Section Related Observation LastModified by Organization Detai ls LastModified Time None Recorded Concern Status LastModified by Organization Details LastModified Time None Recorded Advance Directives Directive None Recorded Payers Insurance Date Sequence Insurance Name Policy Number Policy Mcintyre Covered Member ID Mcintyre Member ID Guarantor Name 10/15/2024 1 [place] [id number] Yoana Penn [id number] Yoana Penn 10/08/2024 1 [employer] [id number] Yoana Penn [id number] Yoana Penn Notes Date Note Type Note Provider Name and Address Organization Details Recorded Time 11/11/2022 text/html Pt is here today to re-establish care.Has been about 3-4 yrs ago.She went to [place] [facility] on 11/01/22 for severe chest pains and pains shooting down her arm.Labs and CXR was normal, D-dimer was slightly elevated, EKG and Troponin was nl, and CTA was Negative for acute PE. Was Diag. w/Pleurisy. Taking ibuprofen and pain is betterShe has ringing in both ears but worse on the right she has hair loss, on spironolactone, helps Mynor Beltran MD [address], [address], [place], [address], [employer] 11/11/2022 16:30:05 09/08/2023 text/html ROS as noted in the HPI Pt is here for follow-up of lower back pain. Pt stated she was prescribed Tramadol last visit, but is afraid to start due to complications it caused her sister. Pt is wanting to discuss Ibuprofen instead.pain is getting betterno more numbness Mynor Beltran MD [address], [address], [place], [address], [employer] [facility] [email or web address] 09/08/2023 17:21:44 10/13/2023 text/html ROS as noted in the HPI Pt is here today for abd.pain and back pain that started around trino of last year. Left sided abd. pain, constant, no radiation, no urine symptomshas had some constipation,Appeti te is good, no nausea. Also was treated for a UTI last month but denies any Sx today Mynor Beltran MD [address], [address], [place], [address], [employer] [facility] [email or web address] 10/13/2023 12:23:52 10/08/2024 text/html ROS as noted in the HPI pt is here today to f/u up on non-UTI with blood in urine and Left flank pain. Pt did not end up having any bacteria just blood in culture. She is wanting to know if she should do some labs. Also wants to check vitamin d level. she has h/o multiple renal cysts, has been evaluated by dr mckoy had cystitis, seen urology Had high platelets, improved. *Pt is fasting Mynor Beltran MD [address] [facility], [facility] [address], [place], [address], [facility] [employer] [facility] 10/08/2024 13:21:31 OBGyn Episode No OBEpisode recorded.
--- NOTE | 2025-06-03 16:55 | ECG_ITS ---
Test Date: 2025-06-03 20:13:18 Measurements Intervals Winn Rate: 76 P: 67 WA: 152 QRS: 3 QRSD: 88 T: 42 QT: 397 QTc: 449 Interpretive Statements SINUS RHYTHM POSSIBLE RIGHT VENTRICULAR CONDUCTION DELAY BASELINE ARTIFACT- I, II, III, AVR, AVL, AVF, V1-V6 BORDERLINE ECG Compared to ECG 06/03/2025 17:28:04 No significant changes Electronically Signed On 06-04-2025 07:12:46 CDT by Uriel Zamora D.O.
--- NOTE | 2025-06-03 16:55 | ED.GENADULT ---
HPI - General Adult General Chief complaint: Chest Pain Stated complaint: R RIB PAIN Time Seen by Provider: 06/03/25 16:55 Focused HPI: This is a 54 year old female that presents to the ER for right sided chest pain. Reports pleuritic in nature. Denies overt shortness of breath. GENERAL: Well-appearing, well-nourished, and in no acute distress. HEAD: Normocephalic, atraumatic. CHEST: Clear to auscultation. ?No respiratory distress. HEART: Regular rate and rhythm.? NEURO: ?Alert and oriented x3. Patient screened in triage and initial orders placed.? ?Additional care and disposition to be based upon?diagnostic testing and treatment. Related Data Home Medications ?Medication ?Instructions ?Recorded ?Confirmed ?Last Taken ?Type albuterol sulfate 90 mcg/actuation 1 inh inhalation Q4-6H PRN 08/21/21 12/23/23 Unknown History breath activated powder inhaler Shortness Of Breath cholecalciferol (vitamin D3) 125 125 mcg PO DAILY 08/21/21 12/23/23 Unknown History mcg (5,000 unit) capsule lactobacillus combination no.4 3 3,000 mmu cells PO DAILY 08/21/21 12/23/23 Unknown History billion cell capsule (Probiotic) spironolactone 100 mg tablet 100 mg PO DAILY 08/21/21 12/23/23 Unknown History vitamin E 200 unit capsule 200 unit PO DAILY 08/21/21 12/23/23 Unknown History levonorgestrel (Mirena) 1 insert intrauterine ONCE 08/30/21 12/23/23 Unknown History ascorbic acid (vitamin C) 500 mg 500 mg PO DAILY 12/23/23 12/23/23 Unknown History tablet Allergies Allergy/AdvReac Type Severity Reaction Status Date / Time No Known Allergies Allergy Verified 06/03/25 15:35 Review of Systems Review of Systems: All systems reviewed & are unremarkable except as noted in HPI and below PMFSH Past Medical History Medical History Colon cancer screening Asthma Vaginal delivery x2 Surgical History Surgical History No pertinent past surgical history Family History Family History Father Skin cancer Sibling Alcoholism Anxiety and depression Grandparent Diabetes mellitus Grandparent Alcoholism Lung cancer Heart disease Social History Social History Smoking status: Never smoker Alcohol intake: current Drinks per week: 4 Alcohol use details: WINE Substance use: never Substance use type: does not use Living arrangements: with family Spiritual care concerns: No Agree to blood products: Yes Course Vital Signs Vital signs: Vital Signs Temperature 98.1 F 06/03/25 15:36 Pulse Rate 107 H 06/03/25 15:36 Respiratory Rate 18 06/03/25 15:36 Blood Pressure 129/95 H 06/03/25 15:36 Pulse Oximetry 100 06/03/25 15:36 Oxygen Delivery Room Air 06/03/25 15:36 Temperature 98.1 F 06/03/25 15:36 Pulse Rate 107 H 06/03/25 15:36 Respiratory Rate 18 06/03/25 15:36 Blood Pressure 129/95 H 06/03/25 15:36 Pulse Oximetry 100 06/03/25 15:36 Oxygen Delivery Room Air 06/03/25 15:36 Medical Decision Making Vital Signs Vital Signs: Vital Signs Temperature 98.1 F 06/03/25 15:36 Pulse Rate 107 H 06/03/25 15:36 Respiratory Rate 18 06/03/25 15:36 Blood Pressure 129/95 H 06/03/25 15:36 Pulse Oximetry 100 06/03/25 15:36 Oxygen Delivery Room Air 06/03/25 15:36 Temperature 98.1 F 06/03/25 15:36 Pulse Rate 107 H 06/03/25 15:36 Respiratory Rate 18 06/03/25 15:36 Blood Pressure 129/95 H 06/03/25 15:36 Pulse Oximetry 100 06/03/25 15:36 Oxygen Delivery Room Air 06/03/25 15:36 Lab Data 06/03/25 17:27 06/03/25 17:27 Labs: Lab Results 06/03/25 06/03/25 06/03/25 Range/Units 17:27 18:19 20:02 WBC 8.2 (4.5-10.0) K/mm3 RBC 4.49 (4.2-5.4) M/mm3 Hgb 14.1 (12.0-15.0) g/dL Hct 42.1 (37.0-47.0) % MCV 93.8 (80-100) fl MCH 31.4 (26-34) pg MCHC 33.5 (32-36) g/dl RDW 11.8 (11.5-14.5) % Plt Count 385 H (150-375) k/mm3 MPV 8.9 (7.4-10.4) fl Immature Gran % (Auto) 0.4 (0-0.5) % Neut % (Auto) 69.1 (45.5-73.1) % Lymph % (Auto) 22.6 (18.3-44.2) % [place] % (Auto) 7.0 (2.6-8.5) % Eos % (Auto) 0.7 (0-4.4) % Baso % (Auto) 0.2 (0.2-1.2) % Lymph # (Auto) 1.84 (0.9-3.2) K/mm3 [place] # (Auto) 0.6 (0.1-0.6) K/mm3 Eos # (Auto) 0.1 (0-0.3) K/mm3 Baso # (Auto) 0.0 (0.0-0.1) K/mm3 Abs Immat Gran (auto) 0.03 (0.00-0.031) K/mm3 Absolute Neuts (auto) 5.6 (1.3-6.7) K/mm3 Absolute Nucleated RBC 0.000 (0.0-0.012) K/mm3 Nucleated RBC % 0.0 (0.0-0.2) % PT 13.5 (11.1-14.7) Seconds INR 1.0 APTT 27.3 (22.3-36.8) Seconds D-Dimer 0.41 (<0.48) ug/mL Sodium 137 (137-145) mmol/L Potassium 4.3 (3.4-5.0) mmol/L Chloride 101 (98-107) mmol/L Carbon Dioxide 26 (22-30) mmol/L Anion Gap 10 (4-12) mmol/L BUN 13 (7-17) mg/dL Creatinine 0.68 L (0.7-1.0) mg/dL Estim Creat Clear Calc 73 ml/min Estimated GFR > 60 (59 - ) Glucose 96 (65-110) mg/dL Calcium 9.9 (8.4-10.2) mg/dL Total Bilirubin 0.8 (0.2-1.3) mg/dL AST 23 (14-36) U/L ALT 17 (6-35) U/L Alkaline Phosphatase 62 (38-126) U/L Troponin I < 0.012 < 0.012 (0.000-0.034) ng/mL Total Protein 8.8 H (6.3-8.2) g/dL Albumin 5.1 (3.5-5.1) g/dL Lipase 76 (23-300) U/L Discharge Plan Discharge Clinical Impression: Atypical chest pain, Costalchondritis, Acute right-sided thoracic back pain Patient Disposition: Home Condition: Stable Instructions: Antibiotic Form, Costochondritis (ED) Additional Instructions: Please return to the ER with any worsening symptoms. Follow-up with primary care provider as soon as possible. Take all medications as prescribed, including regularly scheduled medications. You may take Tylenol and/or ibuprofen for pain control. If you take a muscle relaxant please do not drive afterwards. Remember to drink lots of water. Patient Language: Sami Prescriptions: New cyclobenzaprine 10 mg tablet 10 mg PO TID PRN (Reason: muscle spasm) Qty: 20 0RF ibuprofen 800 mg tablet 800 mg PO TID PRN (Reason: pain) Qty: 30 0RF lidocaine 5 % adhesive patch,medicated 1 patch topical DAILY Qty: 30 0RF Rx Instructions: leave on most painful area for up to 12 hrs No Action albuterol sulfate 90 mcg/actuation aerosol powdr breath activated 1 inh inhalation Q4-6H PRN (Reason: Shortness Of Breath) spironolactone 100 mg tablet 100 mg PO DAILY Probiotic 3 billion cell capsule 3,000 mmu cells PO DAILY Rx Instructions: administer with a meal vitamin E 200 unit capsule 200 unit PO DAILY cholecalciferol (vitamin D3) 125 mcg (5,000 unit) capsule 125 mcg PO DAILY Patient Comments: dose unknown ascorbic acid (vitamin C) 500 mg Tablet 500 mg PO DAILY Mirena 20 mcg/24 hours (7 yrs) 52 mg intrauterine device 1 insert intrauterine ONCE Patient Comments: inserted 02/24/18 Rx Instructions: as a single dose Follow-up/Referrals: Idalmis,Mynor Dickerson MD [Primary Care Provider, Unknown] Time of Disposition: 20:52
--- NOTE | 2025-06-03 17:28 | ED_ITS ---
HPI - SOB/Dyspnea General Chief Complaint: Chest Pain Stated Complaint: R RIB PAIN Time Seen by Provider: 06/03/25 16:55 History of Present Illness HPI Narrative: Patient is a 54-year-old female who presents to the ER with concerns of right shoulder blade pain that worsens when she takes a deep breath. She reports the pain started yesterday around 5:00 p.m. Patient reports she started experiencing slight chest pain prior to being roomed here in the ER. She endorses a history of asthma and takes Spironolactone. Patient denies any wheezing, congestion, or recent fevers. Related Data Home Medications ?Medication ?Instructions ?Recorded ?Confirmed ?Last Taken ?Type albuterol sulfate 90 mcg/actuation 1 inh inhalation Q4 -6H PRN 08/21/21 12/23/23 Unknown History breath activated powder inhaler Shortness Of Breath cholecalciferol (vitamin D3) 125 125 mcg PO DAILY 08/0212/23/23 Unknown History mcg (5,000 unit) capsule lactobacillus combination no.4 3 3,000 mmu cells PO DA IFEANYI 08/21/21 12/23/23 Unknown History billion cell capsule (Probiotic) spironolactone 100 mg tablet 100 mg PO DAILY 08/21/21 12/23/23 Unknown History vitamin E 200 unit capsule 200 unit PO DAILY 08/21/21 12/23/23 Unknown History levonorgestrel (Mirena) 1 insert intrauterine ONCE 1 12/23/23 Unknown History ascorbic acid (vitamin C) 500 mg 500 mg PO DAILY 12/2212/23/23 Unknown History tablet Allergies Allergy/AdvReac Type Severity Reaction Status Date / Time No Known Allergies Allergy Verified 06/03/25 15:35 Review of Systems 2 Review of Systems: All systems reviewed & are unremarkable except as noted in HPI and below PMFSH Past Medical History Medical History Colon cancer screening Asthma Vaginal delivery x2 Surgical History Surgical History No pertinent past surgical history Family History Family History Father Skin cancer Sibling Alcoholism Anxiety and depression Grandparent Diabetes mellitus Grandparent Alcoholism Lung cancer Heart disease Social History Social History Smoking status: Never smoker Alcohol intake: current Drinks per week: 4 Alcohol use details: WINE Substance use: never Substance use type: does not use Living arrangements: with family Spiritual care concerns: No Agree to blood products: Yes Exam 2 Narrative: GENERAL: Well appearing, well-nourished, non-toxic, in no acute distress. HEAD: Normocephalic, atraumatic. NECK: Supple. No adenopathy, no masses. RESPIRATORY: Airway patent, respirations nonlabored. Clear to auscultation bilaterally, no rales, rhonchi, wheezing. CARDIOVASCULAR: Regular rate and rhythm without murmurs, rubs, or gallops. Peripheral pulses 2+ and equal bilaterally. ABDOMINAL: Soft, nontender, nondistended, no hepatosplenomegaly. Normoactive BS. MUSCULOSKELETAL: Moves all extremities. Strength/ROM intact without gross deformities. SKIN: Warm, dry, normal color. No rashes. NEURO: A&O X3. Speech clear. Cranial nerves II-XII intact. No ataxic movements. PSYCHIATRIC: Appropriate mood and affect. Normal interaction. Course Vital Signs Vital signs: Vital Signs Temperature 36.7 C 06/03/25 15:36 Pulse Rate 107 H 06/03/25 15:36 Respiratory Rate 18 06/03/25 15:36 Blood Pressure 129/95 H 06/03/25 15:36 Pulse Oximetry 100 06/03/25 15:36 Oxygen Delivery Room Air 06/03/25 15:36 Temperature 36.7 C 06/03/25 15:36 Pulse Rate 107 H 06/03/25 15:36 Respiratory Rate 18 06/03/25 15:36 Blood Pressure 129/95 H 06/03/25 15:36 Pulse Oximetry 100 06/03/25 15:36 Oxygen Delivery Room Air 06/03/25 15:36 MDM - SOB/Dyspnea MDM Narrative Medical decision making narrative: Patient is a 54-year-old female who presents to the ER with concerns of right shoulder blade pain that worsens when she takes a deep breath. She reports the pain started yesterday around 5:00 p.m. Patient reports she started experiencing slight chest pain prior to being roomed here in the ER. She endorses a history of asthma and takes Spironolactone. Patient denies any wheezing, congestion, or recent fevers. Labs Ordered: CBC, CMP, PTT, INR, D-dimer, troponin, lipase Imaging Ordered: Chest x-ray Medications Ordered: Toradol 15 mg IV Results: Patient's blood work results were all within normal limits. Diagnosis: Musculoskeletal thoracic pain, costochondritis Risks: HEART score: low risk HEART Score for Major Cardiac Events from [employer] on 06/03/2025 All calculations should be rechecked by clinician prior to use RESULT SUMMARY: 1 points Low Score (0-3 points) Risk of MACE of 0.9-1.7%. INPUTS: History ?> 0 = Slightly suspicious EKG ?> 0 = Normal Age ?> 1 = 45-64 Risk factors ?> 0 = No known risk factors Initial troponin ?> 0 = <Normal limit Patient Education/Shared MDM: Results of lab work and imaging shared with patient. She will be given a dose of Toradol IV to help relieve her discomfort. Patient strongly advised to maintain hydration status upon discharge and follow-up with her PCP as needed. She will be discharged home with a prescription for ibuprofen, muscle relaxants, and lidocaine patches. Strict return precautions provided. Patient verbalized understanding and is in agreement with plan. Vital signs stable at time of discharge. All questions answered. Differential Diagnosis Differential diagnosis: Likely community acquired pneumonia, pulmonary embolism and other (Atypical chest pain, costochondritis) Lab Data Attestation: I reviewed the patient's lab results. 06/03/25 17:27 06/03/25 17:27 Labs: Lab Results 06/03/25 06/03/25 06/03/25 Range/Units 17:27 18:19 20:02 WBC 8.2 (4.5-10.0) K/mm3 RBC 4.49 (4.2-5.4) M/mm3 Hgb 14.1 (12.0-15.0) g/dL Hct 42.1 (37.0-47.0) % MCV 93.8 (80-100) fl MCH 31.4 (26-34) pg MCHC 33.5 (32-36) g/dl RDW 11.8 (11.5-14.5) % Plt Count 385 H (150-375) k/mm3 MPV 8.9 (7.4-10.4) fl Immature Gran % (Auto) 0.4 (0-0.5) % Neut % (Auto) 69.1 (45.5-73.1) % Lymph % (Auto) 22.6 (18.3-44.2) % [place] % (Auto) 7.0 (2.6-8.5) % Eos % (Auto) 0.7 (0-4.4) % Baso % (Auto) 0.2 (0.2-1.2) % Lymph # (Auto) 1.84 (0.9-3.2) K/mm3 [place] # (Auto) 0.6 (0.1-0.6) K/mm3 Eos # (Auto) 0.1 (0-0.3) K/mm3 Baso # (Auto) 0.0 (0.0-0.1) K/mm3 Abs Immat Gran (auto) 0.03 (0.00-0.031) K/mm3 Absolute Neuts (auto) 5.6 (1.3-6.7) K/mm3 Absolute Nucleated RBC 0.000 (0.0-0.012) K/mm3 Nucleated RBC % 0.0 (0.0-0.2) % PT 13.5 (11.1-14.7) Seconds INR 1.0 APTT 27.3 (22.3-36.8) Seconds D-Dimer 0.41 (<0.48) ug/mL Sodium 137 (137-145) mmol/L Potassium 4.3 (3.4-5.0) mmol/L Chloride 101 (98-107) mmol/L Carbon Dioxide 26 (22-30) mmol/L Anion Gap 10 (4-12) mmol/L BUN 13 (7-17) mg/dL Creatinine 0.68 L (0.7-1.0) mg/dL Estim Creat Clear Calc 73 ml/min Estimated GFR > 60 (59 - ) Glucose 96 (65-110) mg/dL Calcium 9.9 (8.4-10.2) mg/dL Total Bilirubin 0.8 (0.2-1.3) mg/dL AST 23 (14-36) U/L ALT 17 (6-35) U/L Alkaline Phosphatase 62 (38-126) U/L Troponin I < 0.012 < 0.012 (0.000-0.034) ng/mL Total Protein 8.8 H (6.3-8.2) g/dL Albumin 5.1 (3.5-5.1) g/dL Lipase 76 (23-300) U/L Imaging Data Attestation: I personally reviewed and interpreted this imaging study as follows: Radiologist's impression: Impressions Chest X-Ray 06/03/25 17:48 Impression: No acute cardiopulmonary abnormality. Discharge Plan Discharge Clinical Impression: Atypical chest pain, Costalchondritis, Acute right-sided thoracic back pain Patient Disposition: Home Condition: Stable Instructions: Antibiotic Form, Costochondritis (ED) Additional Instructions: Please return to the ER with any worsening symptoms. Follow-up with primary care provider as soon as possible. Take all medications as prescribed, including regularly scheduled medications. You may take Tylenol and/or ibuprofen for pain control. If you take a muscle relaxant please do not drive afterwards. Remember to drink lots of water. Patient Language: Armenian Prescriptions: New cyclobenzaprine 10 mg tablet 10 mg PO TID PRN (Reason: muscle spasm) Qty: 20 0RF ibuprofen 800 mg tablet 800 mg PO TID PRN (Reason: pain) Qty: 30 0RF lidocaine 5 % adhesive patch,medicated 1 patch topical DAILY Qty: 30 0RF Rx Instructions: leave on most painful area for up to 12 hrs No Action albuterol sulfate 90 mcg/actuation aerosol powdr breath activated 1 inh inhalation Q4-6H PRN (Reason: Shortness Of Breath) spironolactone 100 mg tablet 100 mg PO DAILY Probiotic 3 billion cell capsule 3,000 mmu cells PO DAILY Rx Instructions: administer with a meal vitamin E 200 unit capsule 200 unit PO DAILY cholecalciferol (vitamin D3) 125 mcg (5,000 unit) capsule 125 mcg PO DAILY Patient Comments: dose unknown ascorbic acid (vitamin C) 500 mg Tablet 500 mg PO DAILY Mirena 20 mcg/24 hours (7 yrs) 52 mg intrauterine device 1 insert intrauterine ONCE Patient Comments: inserted 02/24/18 Rx Instructions: as a single dose Follow-up/Referrals: Devin,Mynor Dickerson MD [Primary Care Provider, Unknown] Time of Disposition: 20:52
[2025-06-03 17:32] LABS: Hematocrit 42.1 % (37.0-47.0); Hemoglobin 14.1 g/dL (12.0-15.0); Immature Granulocyte Percent A 0.4 % (0-0.5); Lymphocytes Absolute Auto 1.84 K/mm3 (0.9-3.2); Mean Corpuscular HGB Conc 33.5 g/dl (32-36); Mean Corpuscular Hemoglobin 31.4 pg (26-34); Mean Corpuscular Volume 93.8 fl (80-100); Nucleated Red Blood Cells Absolute Auto 0.000 K/mm3 (0.0-0.012); Nucleated Red Blood Cells Perc 0.0 % (0.0-0.2); Platelet Count Result 385 k/mm3 (150-375); Red Blood Count 4.49 M/mm3 (4.2-5.4); White Blood Count 8.2 K/mm3 (4.5-10.0)
[2025-06-03 17:43] LABS: Alanine Aminotransferase 17 U/L (6-35); Albumin Level 5.1 g/dL (3.5-5.1); Alkaline Phosphatase 62 U/L (38-126); Anion Gap 10 mmol/L (4-12); Aspartate Amino Transferase 23 U/L (14-36); Bilirubin,Total 0.8 mg/dL (0.2-1.3); Blood Urea Nitrogen 13 mg/dL (7-17); Calcium 9.9 mg/dL (8.4-10.2); Carbon Dioxide 26 mmol/L (22-30); Chloride 101 mmol/L (98-107); Estimated CRCL calculation 73 ml/min; Estimated Glomerular Filt Rate > 60; Glucose 96 mg/dL (65-110); Lipase 76 U/L (23-300); Potassium 4.3 mmol/L (3.4-5.0); Sodium 137 mmol/L (137-145); Total Protein 8.8 g/dL (6.3-8.2)
[2025-06-03 17:55] LABS: Troponin I < 0.012 ng/mL (0.000-0.034)
--- OUTSIDE RECORDS SUMMARY | 2025-06-03 18:12 | XMS_ITS | Clinical Summary ---
Author Organization [facility] [address] Address [address] [place] [address] Phone Care Team Providers Care Top Steep Tender Name Role Phone Mynor Beltran MD Primary [...] Description 06/03/2025 3:15 PM CDT Office Visit 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
--- OUTSIDE RECORDS SUMMARY | 2025-06-03 18:12 | XMS_ITS | Clinical Summary ---
Author Organization [facility] [place] Address [address] [place] [address] Phone Care Team Providers Care Housekeeping Lead Name Role Phone Ganesh Almanza MD Primary Care Provider [phone] Allergies No known active allergies Medications ALBUTEROL IN Take by inhalation. Active fluconazole (DIFLUCAN) 150 mg tablet TK 1 T PO NOW AND REPEAT IN 4 DAYS 0 6 Active spironolactone (ALDACTONE) 100 mg tablet 8 Active L. acidophilus/L. rhamnosus (PROBIOTIC ORAL) Take by mouth. Activ e mainor primrose/linole ic/gamoleni (PRIMROSE OIL ORAL) Take by mouth. Activ e levonorgestreL (MIRENA) 20 mcg/24 hours (6 yrs) 52 mg IUD 1 Each by Intrauterine route. Active OTHER [employer] Active ergocalciferol (VITAMIN D2) 50,000 unit capsule Take 1 Capsule by mouth every 7 days. 5 Active calcium CARBONATE + vitamin D (CALTRATE+D) 600 mg-10 mcg (400 unit) Tablet Take by mouth. Activ e Active Problems Patient Care Coordination No te Formatting of this note migh t be different from the original. 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 (03/09/2010): Left 08/04/2008 Core bx Right 09/18/2009 core bx fa Asthma Encounters Date Type Department Care Team Description 05/25/2025 2:45 PM CDT Office Visit [facility] Breast Surgery [place] [address] [place] [address] Tequila Montalvo, SWAMPER Abnormal finding on breast imaging (Primary Dx); Abnormal mammogram of both breasts; Extremely dense tissue of both breasts on mammography; Fibrocystic breast disease (FCBD), unspecified laterality; Fibroadenoma of breast, left 05/25/2025 1:44 PM CDT - 05/25/2025 11:59 PM CDT Hospital Encounter [facility] [place] [address] [place] [address] Tequila Montalvo, SWAMPER Discharge Disposition: Home or Self Care 03/16/2025 External Device Data STL ABSTRACTION Provider, Abstract 03/16/2025 External Device Data STL ABSTRACTION Provider, Abstract 03/16/2025 External Device Data STL ABSTRACTION Provider, Abstract 03/16/2025 External Device Data STL ABSTRACTION Provider, Abstract 03/15/2025 External Device Data STL ABSTRACTION Provider, Abstract from Last 3 Months Family History Medical History Relation Name Comments Melanoma Father Jose De Jesus Pagan Cancer Mother Katherine Pagan skin, bile duct ca (diagnosed February 12) Cancer - Other Mother Katherine Pagan Bike Duct Breast Cancer Neg Hx Ovarian Cancer Neg Hx Uterine Cancer Neg Hx Relation Name Status Comments Father Jose De Jesus Pagan Mother Katherine Pagan (Age 83) March 2014 Social History Tobacco Use Types Packs/Day Years Used Date Smoking Tobacco: Never Smokeless Tobacco: Never Tobacco Cessation:Counseling Given: No Alcohol Use Standard Drinks/Week Comments Yes 0 (1 standard drink = 0.6 oz pur e alcohol) rarely Feeling Safe Answer Date Recorded Fear of Current or Ex-Partner Not on file Emotionally Abused Not on file 01/30/2024 Within the last year, have y ou been kicked, hit, slapped, or otherwise physically hurt by your partner or ex-partner? No 01/30/2024 Sexually Abused Not on file 01/30/2024 Feeling Safe Answer Date Recorded Do you worry about feeling s afe and happy with the people in your life? No 11/24/2024 Comments No Sex and Gender Information Value Date Recorded Sex Assigned at Not on file Legal Sex Female 5:40 AM [facility] NURSE Gender Identity Not on file Sexual Orientation Not on file Occupation Industry Job Start Date Job End Date Not on file Not on file Not on file Not on file Last Filed Vital Signs Vital Sign Reading Time Taken Comments Blood Pressure 112/62 05/25/2025 2:31 PM CDT Pulse 72 04/12/2022 9:46 AM CDT Temperature 36.6 C (97.9 F) 04/12/2022 9:46 AM CDT Respiratory Rate - - Oxygen Saturation 99% 04/12/2022 9:46 AM CDT Inhaled Oxygen Concentration - - Weight 58.1 kg (128 lb) 05/25/2025 2:31 PM CDT Height 165.1 cm (5' 5) 05/25/2025 2:31 PM CDT Body Mass Index 21.3 05/25/2025 2:31 PM CDT Plan of Treatment Upcoming Encounters Date Type Department Care Team (Late st Contact Info) Description 12/07/2025 1:45 PM CDT Appointment [facility] [place] [address] [place] [address] Tequila Montalvo, LIV[place] [address] [place] [address] 12/07/2025 2:00 PM CDT Appointment [facility] [place] [address] [place] [address] Tequila Montalvo, L[place] [address] [place] [address] 12/07/2025 2:45 PM CDT Office Visit [facility] Breast Surgery [place] [address] [place] [address] Tequila Montalvo, L[place] [address] [place] [address] Health Maintenance Due Date Last Done Comments DTAP/TDAP/TD VACCINES (1 - Tdap) 1989 HEPATITIS B VACCINES (1 of 3 - 19+ 3-dose series) 1989 HPV/Cotest (21-29) 1991 CERVICAL CANCER SCREENING 2000 HPV/Cotest (30-65) 2000 PAP SMEAR 2000 COLORECTAL SCREENING 2015 Colorectal Cancer Screening 2015 FIT-DNA Q 3 years 2015 FIT/FOBT Q 1 year 2015 Flex Sig/CT Colonography Q 5 years 2015 ZOSTER VACCINE (1 of 2) 2020 INFLUENZA VACCINE (#1) 2025 8, 08/18/2017, 06/30/2015, Additional history exists BREAST CANCER SCREENING 11/24/2025 11/25/19 25, 11/24/2023, 04/12/2022, Additional history exists Procedures Procedure Name Priority Date/Time Associated Diagnosis Comments MAMMO BREAST US BILAT LTD Routine 05/25/2025 2:15 PM CDT Abnormal mammogram of both breasts MAMMO 3D DIPAK DIAGNOSTIC BILAT W OR WO CAD Routine 11/24/2024 2:07 PM CDT Fibroadenoma of breast, left Fibrocystic breast disease (FCBD), unspecified laterality Extremely dense tissue of both breasts on mammography from Last 3 Months or Most Recently Relevant to Health Maintenance Results * (ABNORMAL) MAMMO BREAST US 500FriendsAT LTD (05/25/2025 2:15 PM CDT) Anatomical Region Laterality Modality Bilateral Ultrasound 05/25/2025 2:15 PM CDT Impressions 05/25/2025 2:25 PM CDT IMPRESSION: No suspicious findings to suggest malignancy. Bilateral breast masses are unchanged, likely representing benign masses such as fibroadenomas. Recommend continued ultrasound follow-up of both breasts in order to document stability. Targeted sonography of both breasts is recommended in conjunction with diagnostic bilateral mammograms, due in October 2025. OVERALL ASSESSMENT: BI-RADS Category 3. Probably benign findings. DICTATION LOCATION: [facility] 05/25/2025 2:25 PM CDT EXAM: Limited bilateral breast ultrasound. COMPARISON: Ultrasound and mammograms 11/24/2024 and older HISTORY: Short-term follow-up of probably benign bilateral breast masses. FINDINGS: Targeted sonography the upper central right breast was performed. Redemonstrated at 9:00, 6 cm from the nipple is a parallel, lobular hypoechoic mass measuring 1.2 x 0.5 x 1.7 cm, stable. This demonstrates no internal vascularity or posterior acoustic features. Targeted sonography of the upper central left breast was performed. Again seen at 12:00, 3 cm from the nipple is a parallel, oval hypoechoic mass measuring 0.7 x 0.3 x 0.4 cm, stable. This demonstrates no internal vascularity or posterior acoustic features. us Tequila Montalvo SWAMPER MAMMO ORDERABLES Final Re sult * MAMMO 3D DIPAK DIAGNOSTIC BILAT W OR WO CAD (11/24/2024 2:07 PM CDT) Anatomical Region Laterality Modality Breast Bilateral Mammography 11/24/2024 2:07 PM CDT Impressions 11/24/2024 3:15 PM CDT IMPRESSION: No mammographic evidence of malignancy. RECOMMENDATIONS: Routine mammogram in one year. DICTATION LOCATION: [facility] 11/24/2024 3:15 PM CDT EXAM: BILATERAL DIAGNOSTIC FULL-FIELD DIGITAL MAMMOGRAPHY WITH CAD WITH 3D TOMOSYNTHESIS DATE: 11/24/2024 2:07 PM HISTORY: Personal history of benign biopsies. Dense breast tissue TECHNIQUE: Mediolateral oblique and craniocaudal views of both breasts were performed using full field digital mammography. Low-dose full-field digital breast tomosynthesis examination was performed with 2D and 3D acquisitions. Examination is read in conjunction with computer aided detection. COMPARISON: 2023, 2021, 2020 BREAST COMPOSITION: The breasts are extremely dense, which lowers the sensitivity of mammography. FINDINGS: No new suspicious mass, microcalcifications or architectural distortion. Site marker is again seen in the left breast. Site marker that was seen in the right breast is not identified on this study. OVERALL FINAL ASSESSMENT: BI-RADS CATEGORY 2: Benign findings us Tequila Montalvo SWAMPER MAMMO ORDERABLES Final Re sult from Last 3 Months or Most Recently Relevant to Health Maintenance Insurance [employer] BLUE ACCESS/TRUE BLUE PPO Care Teams Housekeeping Lead Relationship Specialty Start Date End Date Ganesh Almanza MD [address] [place] [id number] PCP - General Family Practice 03/15/21
[2025-06-03 18:36] LABS: INR 1.0; Prothrombin Time 13.5 Seconds (11.1-14.7)
[2025-06-03 18:37] LABS: Partial Thromboplastin Time 27.3 Seconds (22.3-36.8)
--- NOTE | 2025-06-03 19:57 | ECG_ITS ---
Test Date: 2025-06-03 17:28:04 Measurements Intervals [place] Rate: 83 P: 71 WA: 143 QRS: 0 QRSD: 89 T: 49 QT: 360 QTc: 423 Interpretive Statements SINUS RHYTHM POSSIBLE RIGHT VENTRICULAR CONDUCTION DELAY BORDERLINE ECG No previous ECG available for comparison Electronically Signed On 06-04-2025 06:50:49 CDT by Uriel Zamora D.O.
[2025-06-03 20:31] LABS: Troponin I < 0.012 ng/mL (0.000-0.034)
[2025-06-03] MEDS: KETOROLAC 15 MG/ML VIAL (*BKC) IV PUSH (21:21)
== END 2025-06-03 21:26 | disposition home or self-care (01) ==
PROVIDERS: Physician Assistant; Emergency Provider Registered Nurse; PCP Internal Medicine
DX: R07.89 Other chest pain (principal); M94.0 Chondrocostal junction syndrome [Tietze]; M54.6 Pain in thoracic spine; J45.909 Unspecified asthma, uncomplicated; Z97.5 Presence of (intrauterine) contraceptive device; R94.31 Abnormal electrocardiogram [ECG] [EKG]
CPT/HCPCS: 36415; 71046; 80053; 83690; 84484; 85025; 85380; 85610; 85730; 93005; 96374; 99284; J1885